=== PATIENT | female | born 2000 | race Hispanic/Latino ===

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

== ENCOUNTER 2022-08-02 23:57 | Emergency (ER) | payer OTHER ==
--- OUTSIDE RECORDS SUMMARY | 2022-08-02 23:58 | XMS REPORT | Continuity of Care Document ---
:2000 Author Organization [facility] t Address [address] [facility] [address] [place] [address] Care Team Providers Name Role Phone PCP, NO Primary Care Physician Unavailable MARQUIS MEZA Attending Clinician Unavailable MARQUIS MEZA Admitting Clinician Unavailable Problems This patient has no known problems. Allergies, Adverse Reactions, Alerts This patient has no known allergies or adverse reactions. Medications This patient has no known medications. Procedures This patient has no known procedures. Encounters Start End Encounter Admission Attending Care Care Encounter Source Date/Time Date/Time Type Type Clinicians Facility Department ID 2022-03-09 2022-03-10 Inpatient ER [facility]ELO [facility] [id number] 0-2 [facility] 12:24:00 14:50:00 [facility] [id number] [facility] 2022-03-09 2022-03-09 Inpatient ER [facility] [id number] 1-2 [facility] 12:24:00 07:15:00 [facility] [id number] [facility] Results This patient has no known results.
[2022-08-03] MEDS ORDERED: KETOROLAC 30 MG/ML INJ ONE (00:48)
[2022-08-03] MEDS ORDERED: ONDANSETRON 4 MG/2 ML VIAL ONE (00:48)
[2022-08-03] MEDS ORDERED: MORPHINE 4 MG/ML SYR ONE (00:48)
[2022-08-03] MEDS ORDERED: NA CHLORIDE 0.9% 1,000 ML ONE (00:48)
[2022-08-03 01:05] LABS: Specific Gravity 1.021 (1.005-1.030); Urine Bilirubin NEGATIVE (Negative); Urine Blood Negative (Negative); Urine Clarity Clear (Clear); Urine Color Light-Yellow (Yellow); Urine Glucose NEGATIVE (Negative); Urine Protein NEGATIVE (Negative); Urine Urobilinogen Normal (Normal)
[2022-08-03 01:06] LABS: Absolute Lymphocytes (CBC) 2.4 K/uL (0.7-4.9); Hematocrit 38.6 % (36.0-45.0); Lymphocytes % 30.7 % (15.3-44.8); MCV 90.3 fL (80-100); RBC Red Blood Cell Count 4.27 M/uL (3.86-4.86)
[2022-08-03 01:15] LABS: Specific Gravity 1.021 (1.005-1.030)
[2022-08-03 01:21] LABS: Albumin 3.9 g/dL (3.4-5.0); Bilirubin Total 0.2 mg/dL (0.2-1.0); Potassium 3.8 mEq/L (3.5-5.1); Protein, Total 7.6 g/dL (6.4-8.2)
--- NOTE | 2022-08-03 02:54 | EDPHYS ---
Physician Documentation [facility] Name: Sharron Lamb Age: 22 yrs Sex: Female : 2000 Arrival Date: 08/02/2022 Time: 23:57 Bed 18 Private MD: ED Physician Jack Martínez HPI: 08/03 00:28 This 22 yrs old Female presents to ER via Ambulatory with complaints of ms3 Abdominal Pain. 00:28 22-year-old female with past medical history of hypothyroidism presents for abdominal ms3 pain that began 2 hours prior to arrival. Patient states her pain is an 8/10. Patient endorses nausea, diarrhea, chills. Patient denies vomiting or fever. Patient states she had similar pain 1 month ago that did not last this long. Patient denies alleviating or inciting factors.. Historical: - Allergies: 00:12 No Known Allergies; pf1 - PMHx: 00:12 Thyroid problem; pf1 - PSHx: 00:12 Appendectomy; pf1 - Immunization history:: Adult Immunizations up to date, Client reports receiving the 1st dose of the Covid vaccine, Last tetanus immunization: < 5 years ago Flu vaccine is not up to date. - Social history:: Smoking status: Reported history of juuling and/or vaping. Patient uses alcohol, occasionally. Patient/guardian denies using street drugs. ROS: 00:28 Constitutional: Negative for fever, and chills. ENT: Negative for injury, pain, and ms3 discharge, Neck: Negative for injury, pain, and swelling, Cardiovascular: Negative for chest pain, and palpitations. Respiratory: Negative for shortness of breath, cough, wheezing, and pleuritic chest pain. 00:28 MS/Extremity: Negative for injury and deformity, Skin: Negative for injury, rash, and discoloration. 00:28 Abdomen/GI: Positive for abdominal pain. 00:28 All other systems are negative. Exam: 00:28 Constitutional: This is a well developed, well nourished patient who is awake, alert, ms3 and in no acute distress. Head/Face: Normocephalic, atraumatic. Neck: Trachea midline, no cervical lymphadenopathy. Supple, full range of motion without nuchal rigidity, or vertebral point tenderness. No Meningismus. Chest/axilla: Normal chest wall appearance and motion. Nontender with no deformity. Cardiovascular: Regular rate and rhythm with a normal S1 and S2. No gallops, murmurs, or rubs. Normal PMI, no JVD. No pulse deficits. Respiratory: Lungs have equal breath sounds bilaterally, clear to auscultation and percussion. No rales, rhonchi or wheezes noted. No increased work of breathing, no retractions or nasal flaring. 00:28 Abdomen/GI: Inspection: abdomen appears normal, Bowel sounds: normal, Palpation: moderate abdominal tenderness, in the right upper quadrant, left upper quadrant and right lower quadrant. Vital Signs: 00:06 BP 127 / 99; Pulse 90; Resp 18; Temp 97.3; Pulse Ox 97% on R/A; Weight 79.38 kg; Height pf1 5 ft. 2 in. ; Pain 7/10; 02:00 BP 124 / 75; Pulse 82; Resp 17; Pulse Ox 97% on R/A; aa9 03:19 BP 128 / 79; Pulse 89; Resp 18; Temp 98.5(O); Pulse Ox 99% on R/A; aa9 00:06 Body Mass Index 32.01 (79.38 kg, 157.48 cm) pf1 00:06 Pain Scale: Adult pf1 MDM: 00:10 Patient medically screened. ms3 00:28 Differential diagnosis: bowel obstruction, non-specific abd pain, Ovarian Cyst. ms3 04:22 Data reviewed: vital signs, nurses notes, radiologic studies, CT scan, and as a result, ms3 I will discharge patient. I considered the following discharge prescriptions or medication management in the emergency department Medications were administered in the Emergency Department. See MAR. Counseling: I had a detailed discussion with the patient and/or guardian regarding: the historical points, exam findings, and any diagnostic results supporting the discharge/admit diagnosis, lab results, radiology results, the need for outpatient follow up, to return to the emergency department if symptoms worsen or persist or if there are any questions or concerns that arise at home. Response to treatment: the patient's symptoms have markedly improved after treatment, and as a result, I will discharge patient. Special discussion: I discussed with the patient/guardian in detail that at this point there is no indication for admission to the hospital. It is understood, however, that if the symptoms persist or worsen the patient needs to return immediately for re-evaluation. 08/03 00:11 Order name: CBC with Diff; Complete Time: 02:48 ms3 08/03 00:11 Order name: CMP; Complete Time: 02:48 ms3 08/03 00:11 Order name: Lipase; Complete Time: 02:48 ms3 08/03 00:11 Order name: Test, Urine; Complete Time: 02:48 ms3 08/03 00:11 Order name: Urinalysis w/ reflexes; Complete Time: 02:48 ms3 08/03 00:11 Order name: CT Abd/Pelvis - IV Contrast Only ms3 08/03 00:11 Order name: IV Saline Lock; Complete Time: 00:58 ms3 08/03 00:11 Order name: Labs collected and sent; Complete Time: 00:58 ms3 Administered Medications: 00:57 Drug: NS 0.9% IV 1000 ml Route: IV; Rate: 1 bolus; Site: right antecubital; aa9 03:22 Follow up: Response: No adverse reaction; IV Status: Completed infusion; IV Intake: aa9 1000ml 00:57 Drug: TORadol - Ketorolac IVP 15 mg Route: IVP; Site: right antecubital; aa9 03:18 Follow up: Response: No adverse reaction aa9 00:57 Drug: Ondansetron IVP 4 mg Route: IVP; Site: right antecubital; aa9 03:18 Follow up: Response: No adverse reaction aa9 00:57 Drug: morphine IVP or IV 4 mg Route: IVP; Infused Over: 4 mins; Site: right antecubital;aa9 03:18 Follow up: Response: No adverse reaction aa9 03:18 Drug: HYDROcodone-acetaminophen PO 5 mg-325 mg 1 tabs Route: PO; aa9 Disposition Summary: 08/03/22 02:53 Discharge Ordered Location: Home ms3 Condition: Stable ms3 Diagnosis - Lower abdominal pain, unspecified ms3 - Other and unspecified ovarian cysts ms3 Discharge Instructions: - Discharge Summary Sheet ms3 - Abdominal Pain, Adult ms3 - Ovarian Cyst, [id number]-he-[id number] ms3 Forms: - Medication Reconciliation Form ms3 - Thank You Letter ms3 - Antibiotic Education ms3 - Prescription Opioid Use ms3 Signatures: Dispatcher [employer] Jack Leon DO DO ms3 Leonela Lindsey, RN RN aa9 Talia Lopez, RN RN pf1
--- NOTE | 2022-08-03 02:54 | ER ---
Nurse's Notes [facility] Name: Sharron Lamb Age: 22 yrs Sex: Female : 2000 Arrival Date: 08/02/2022 Time: 23:57 Bed 18 Private MD: Diagnosis: Lower abdominal pain, unspecified;Other and unspecified ovarian cysts Presentation: 08/03 00:06 Chief complaint: Patient states: abdominal RLQ pain of 7 and upper abdominal pain,onset pf1 2 hours ago with nausea and loose stools x 2 episodes within the past 24 hours. Patient also C/O urinary stabbing pain after urinating,onset 1 year ago. Patient stated had and US 3 months and was diagnosed with a right side ovarian cyst. Coronavirus screen: Vaccine status: Patient reports receiving the 1st dose of the Covid vaccine. [employer] Client denies travel out of the [place] in the last 14 days. Ebola Screen: Patient negative for fever greater than or equal to 101.5 degrees Fahrenheit, and additional compatible Ebola Virus Disease symptoms. Initial Sepsis Screen: Does the patient meet any 2 criteria? No. Patient's initial sepsis screen is negative. Does the patient have a suspected source of infection? No. Patient's initial sepsis screen is negative. Risk Assessment: Do you want to hurt yourself or someone else? Patient reports no desire to harm self or others. 00:06 Method Of Arrival: Ambulatory pf1 00:06 Acuity: CAESAR 3 pf1 Triage Assessment: 03:21 General: Appears in no apparent distress. comfortable, Behavior is calm, cooperative. aa9 Pain: Complains of pain in right lower quadrant. Neuro: Level of Consciousness is awake, alert, obeys commands, Oriented to person, place, time, situation. Cardiovascular: Patient's skin is warm and dry. Respiratory: Airway is patent Respiratory effort is even, unlabored. GI: Reports nausea, Patient currently denies diarrhea, vomiting. Historical: - Allergies: 00:12 No Known Allergies; pf1 - PMHx: 00:12 Thyroid problem; pf1 - PSHx: 00:12 Appendectomy; pf1 - Immunization history:: Adult Immunizations up to date, Client reports receiving the 1st dose of the Covid vaccine, Last tetanus immunization: < 5 years ago Flu vaccine is not up to date. - Social history:: Smoking status: Reported history of juuling and/or vaping. Patient uses alcohol, occasionally. Patient/guardian denies using street drugs. Screenin:20 [facility] ED Fall Risk Assessment (Adult) History of falling in the last 3 months, aa9 including since admission No falls in past 3 months (0 pts) Confusion or Disorientation No (0 pts) Intoxicated or Sedated No (0 pts) Impaired Gait No (0 pts) Mobility Assist Device Used No (0 pt) Altered Elimination No (0 pt) Score/Fall Risk Level 0 - 2 = Low Risk Oriented to surroundings, Maintained a safe environment. Abuse screen: Denies threats or abuse. Denies injuries from another. Nutritional screening: No deficits noted. Tuberculosis screening: No symptoms or risk factors identified. Assessment: 02:00 Reassessment: Patient appears in no apparent distress at this time. Patient and/or aa9 family updated on plan of care and expected duration. Pain level reassessed. Patient is alert, oriented x 3, equal unlabored respirations, skin warm/dry/pink. 03:00 Reassessment: Patient appears in no apparent distress at this time. pt c/o lower abd aa9 pain coming off states "The morphine is wearing off, can I have something for pain before I leave? notified Tanya JOINER. Vital Signs: 00:06 BP 127 / 99; Pulse 90; Resp 18; Temp 97.3; Pulse Ox 97% on R/A; Weight 79.38 kg; Height pf1 5 ft. 2 in. ; Pain 7/10; 02:00 BP 124 / 75; Pulse 82; Resp 17; Pulse Ox 97% on R/A; aa9 03:19 BP 128 / 79; Pulse 89; Resp 18; Temp 98.5(O); Pulse Ox 99% on R/A; aa9 00:06 Body Mass Index 32.01 (79.38 kg, 157.48 cm) pf1 00:06 Pain Scale: Adult pf1 ED Course: 08/02 23:59 Patient arrived in ED. [email or web address] 08/03 00:04 Jack Martínez DO is Attending Physician. ms3 00:12 Triage completed. pf1 00:58 CBC with Diff Sent. aa9 00:58 CMP Sent. aa9 00:58 Lipase Sent. aa9 00:58 Test, Urine Sent. aa9 00:58 Urinalysis w/ reflexes Sent. aa9 01:52 CT Abd/Pelvis - IV Contrast Only In Process Unspecified. EDMS 02:00 Patient has correct armband on for positive identification. Placed in gown. Bed in low aa9 position. Call light in reach. Side rails up X2. Adult w/ patient. 02:00 Pulse ox on. NIBP on. Door closed. Warm blanket given. aa9 03:13 Leonela Lindsey, RN is Primary Nurse. aa9 03:21 No provider procedures requiring assistance completed. IV discontinued, intact, aa9 bleeding controlled, No redness/swelling at site. Pressure dressing applied. 03:21 Arm band placed on. aa9 Administered Medications: 00:57 Drug: NS 0.9% IV 1000 ml Route: IV; Rate: 1 bolus; Site: right antecubital; aa9 03:22 Follow up: Response: No adverse reaction; IV Status: Completed infusion; IV Intake: aa9 1000ml 00:57 Drug: TORadol - Ketorolac IVP 15 mg Route: IVP; Site: right antecubital; aa9 03:18 Follow up: Response: No adverse reaction aa9 00:57 Drug: Ondansetron IVP 4 mg Route: IVP; Site: right antecubital; aa9 03:18 Follow up: Response: No adverse reaction aa9 00:57 Drug: morphine IVP or IV 4 mg Route: IVP; Infused Over: 4 mins; Site: right antecubital;aa9 03:18 Follow up: Response: No adverse reaction aa9 03:18 Drug: HYDROcodone-acetaminophen PO 5 mg-325 mg 1 tabs Route: PO; aa9 Medication: 03:22 VIS not applicable for this client. aa9 Intake: 03:22 IV: 1000ml; Total: 1000ml. aa9 Outcome: 02:53 Discharge ordered by . ms3 03:21 Discharged to home ambulatory. aa9 03:21 Condition: stable 03:21 Discharge instructions given to patient, Instructed on discharge instructions, follow up and referral plans. Demonstrated understanding of instructions, follow-up care. 03:22 Patient left the ED. aa9 Signatures: Dispatcher [employer] Jack Martínez DO DO ms3 Jyoti Bergman [email or web address] Leonela Lindsey, RN RN aa9 Talia Lopez, RN RN pf1
[2022-08-03] MEDS ORDERED: HYDROCODONE/APAP 5/325 MG TAB ONE (03:22)
[2022-08-03 03:30] VITALS: BP 128/79; TEMP 98.5; O2SAT 99
--- NOTE | 2022-08-03 22:01 | RAD REPORT ---
EXAM DESCRIPTION: CT - Abdomen Pelvis W Contrast - 08/03/2022 6:39 am CLINICAL HISTORY: 22 years, Female, upper abd and RLQ pain COMPARISON: None TECHNIQUE: Contrast-enhanced images of the abdomen and pelvis were performed utilizing 5 mm slice th ickness at 5 mm interval reconstruction from the lung bases to the ischial tuberosities after the adm inistration of IV contrast. In addition multiplanar reformats in the coronal and sagittal plane were obtained and reviewed. This exam was performed according to our departmental dose-optimization protocol, which includes auto mated exposure control, adjustment of the mA and/or kV according to patient size and/or use of iterat aniya reconstruction technique. FINDINGS: The lung bases demonstrate to be clear. The liver, pancreas, spleen and adrenal glands demonstrate to be unremarkable, no focal lesions are n oted. The kidneys demonstrate normal uptake of contrast media. No evidence for nephrolithiasis and/or hydro nephrosis. Grossly the unopacified stomach, small bowel and large bowel demonstrate to be within normal limits. There is no evidence for bowel dilatation/or free air. The appendix was not visualized. The surgi asif clips within the right lower quadrant/cecum suggest previous appendectomy. The left site colon de monstrate to be unremarkable. The urinary bladder demonstrate to be unremarkable. The uterus demonstrate to be within normal limi ts. There is a right adnexal cystic lesion measuring 3 x 4 cm on image 72. There is a left adnexal cy stic lesion with rim wall enhancement measuring 1.1 x 2 cm on image 69 corresponding to a corpus lute um cyst. The aorta demonstrate to be normal. There is no retroperitoneal lymphadenopathy. There i s no evidence for ascites. There is a small trace free fluid posterior cul-de-sac and right lower chon drant area, most likely physiologic in nature/recent ovulation. The rest of the soft tissue and bony structures are within normal limits. IMPRESSION: 3 x 4 cm right ovarian cyst. No follow-up is recommended. 1.1 x 2 cm left adnexal cystic lesion with rim wall enhancement corresponding to a corpus luteum cyst . No follow-up is recommended Small trace free fluid posterior cul-de-sac and right lower quadrant area, most likely physiologic in nature/recent ovulation. Status post appendectomy. Electronically signed by: Jorge Cantor MD 08/03/2022 2:19 AM CDT Due to temporary technical issues with the PACS/Fluency reporting system, reports are being signed by the in house radiologists without review as a courtesy to insure prompt reporting. The interpreting radiologist is fully responsible for the content of the report.
== END 2022-08-03 03:22 | disposition home or self-care (01) ==
LOC: ER 23:57
DX: N83.299 Other ovarian cyst, unspecified side (principal)
CPT/HCPCS: 96361; 85025; 36415; 81025; 81003; 83690; 80053; 74177; 96375; 96374; 99284; Q9967; J2405; J7030